=== PATIENT | male | born 1985 ===

== ENCOUNTER 2019-03-01 15:42 | Emergency (ER) | payer SELFPAY ==
[2019-03-01] MEDS ORDERED: ZOFRAN ODT PO ONE (15:49)
--- NOTE | 2019-03-01 15:49 | Emergency Department Report ---
Chief Complaint: Abdominal Pain Stated Complaint: STOMACH PAIN Time Seen by Provider: 03/01/19 15:47 - HPI History of Present Illness: ate burger from [employer] couple hours ago and now states terrible pain pain around navel pmh none psh none rx none no cig no drugs etoh occ co vomit x 1 and 1 bm. mse completed MSE screening note: Focused history and physical exam performed. Due to findings the following was ordered: ED Disposition for MSE Condition: Stable
[2019-03-01 16:47] LABS: Hematocrit 46.9 % (35.5-45.6); Hemoglobin 15.7 gm/dl (11.8-15.2); Mean Corpuscular HGB Conc 34 % (32-34); Mean Corpuscular Volume 92 fl (84-94); Red Blood Count 5.09 M/mm3 (3.65-5.03); Red Cell Distribution Width 13.8 % (13.2-15.2)
[2019-03-01 16:51] LABS: Platelet Count 178 K/mm3 (140-440)
--- NOTE | 2019-03-01 17:29 | XRay Report ---
PROCEDURE: XR ABD SERIES W CXR 1V HISTORY: abd pain FINDINGS: Frontal view of the chest was acquired as well as supine and erect views of the abdomen. The heart is normal in size. The lungs appear mildly hyperinflated but clear. In the abdomen, air is seen within nondistended loops of small bowel and large bowel. There is no bow el obstruction. IMPRESSION: Hyperinflation No bowel obstruction This document is electronically signed by Theron Gutierrez MD., Mar 01 2019 05:28:05 PM ET
[2019-03-01 17:32] LABS: BUN/Creatinine Ratio 12; Blood Urea Nitrogen 13 mg/dL (9-20); Hemolysis Index 11
[2019-03-01] MEDS ORDERED: LEVSIN SL SL ONE (17:45)
--- NOTE | 2019-03-01 17:49 | Emergency Department Report ---
Vomiting/Diarrhea - HPI Chief Complaint: Abdominal Pain Stated Complaint: STOMACH PAIN Time Seen by Provider: 03/01/19 15:47 Duration: Today Severity: moderate Nausea/Vomiting Severity: Mild Diarrhea Severity: Mild Pain Location: Suprapubic Pain Severity: Moderate Symptoms: Yes Watery Diarrhea, Yes Recent Unusual Foods, No Bloody diarrhea, No Recent Untreated Water, No Recent use of Antibiotics, No Family w/ Similar Symptoms, No Contacts w/ Similar Symptoms, No Rash, No Hematuria, No Recent URI Symptoms Other History: 84-year-old -[place] male with no past medical history takes no medications on a daily basis and has no known drug allergies comes in for 1 hour worth of abdominal pain and a slowed gait is suprapubic. Patient reports that he threw up one time. Patient reports that would lead to this was his roommate gave him a quarter pounder from [employer] and when he pulled back then read and took a bite that he noticed at the meat was all pink. Patient put he had swallowed that by then. Patient reports that he had taken 2 bites and that's when he started to have stomach pain. Patient reports that he vomited twice and had 2 loose stools. Patient reports that the nausea has gotten better since having a Zofran in triage. Patient reports pain is at the bottom but below his navel per patient. ED Review of Systems ROS: Stated complaint: STOMACH PAIN Other details as noted in HPI Comment: All other systems reviewed and negative Gastrointestinal: abdominal pain (upper pubic), nausea, vomiting, diarrhea ED Past Medical Hx - Past Medical History Previous Medical History?: No - Surgical History Past Surgical History?: No - Social History Smoking Status: Current Every Day Smoker Substance Use Type: None - Medications Home Medications: Home Medications Medication Instructions Recorded Confirmed Last Taken Type Hyoscyamine Subl [Levsin Sl 0.125 0.125 mg SL Q6HR PRN #8 tab 03/01/19 Unknown Rx TAB] Vomiting Diarrhea Exam - Exam General: Vital signs noted. No distress. Alert and acting appropriately. HEENT: Yes Moist Mucous Membranes, No Pharyngeal Erythema, No Pharyngeal Exudates, No Rhinorrhea, No Conjuctival Injection, No Frontal Tenderness, No Maxillary Tenderness Neck: No Adenopathy, No Rigidity Lungs: Yes Clear Lung Sounds, Yes Good Air Exchange, No Wheezes, No Stridor, No Cough, No Nasal Flaring, No Retractions, No Use of Accessory Muscles Heart exam: Regular: Yes, Murmur: No, Tachycardia: No Abdomen: Tenderness: Yes (left lower suprapubic), Peritoneal Signs: No, Distention: No, Hyperactive Bowel sounds: No Skin exam: Rash: No, Edema: No, Normal turgor: Yes Neurologic: Alert and oriented, no deficits. Musculoskeletal: Unremarkable. ED Course Vital Signs 03/01/19 15:47 Temperature 98.1 F Pulse Rate 88 Respiratory 18 Rate Blood Pressure 151/79 O2 Sat by Pulse 99 Oximetry ED Medical Decision Making - Lab Data Result diagrams: 03/01/19 16:08 03/01/19 16:08 - Medical Decision Making Patient has been evaluated by this provider in fast track. Urinalysis is pending. Patient is had Zofran in triage he will be given Levsin 0.125 mg sublingual in fast track. Pending urinalysis will determine continuing treatment plan. Urinalysis is completely shows no acute abnormalities. Critical care attestation.: If time is entered above; I have spent that time in minutes in the direct care of this critically ill patient, excluding procedure time. ED Disposition Clinical Impression: Nausea vomiting and diarrhea Abdominal pain Qualifiers: Abdominal location: left upper quadrant Qualified Code(s): R10.12 - Left upper quadrant pain Disposition: - TO HOME OR SELFCARE Is pt being admited?: No Does the pt Need Aspirin: No Condition: Stable Instructions: Acute Nausea and Vomiting (ED), Abdominal Pain (ED) Additional Instructions: Please take Levsin as needed for abdominal cramping. Please increase her water intake he can start a Brat diet consisting of bread rice applesauce toast. Advance her diet as tolerated. Prescriptions: Hyoscyamine Subl [Levsin Sl 0.125 TAB] 0.125 mg SL Q6HR PRN #8 tab PRN Reason: Pain , Severe (7-10) Referrals: [facility] [Provider Group] - 3-5 Days Forms: Work/School Release Form(ED)
[2019-03-01 17:53] LABS: Bilirubin,Urine NEG (Negative); Blood,Urine NEG (Negative); Color,Urine Yellow (Yellow); Mucus,Urine FEW /HPF; Protein,Urine <15 mg/dL mg/dL (Negative); Urobilinogen,Urine < 2.0 mg/dL (<2.0)
[2019-03-01 18:37] VITALS: BP 115/72
== END 2019-03-01 18:38 | disposition home or self-care (01) ==
LOC: ED 15:42
DX: R10.30 Lower abdominal pain, unspecified (principal); R11.2 Nausea with vomiting, unspecified; R19.7 Diarrhea, unspecified; F17.200 Nicotine dependence, unspecified, uncomplicated
CPT/HCPCS: 36415; 74022; 80048; 81001; 85027; Q0162